=== PATIENT | male | born 1970 | race American Indian/Alaskan Native ===

== ENCOUNTER 2017-01-20 10:25 | Emergency (ER) | payer OTHER ==
--- NOTE | 2017-01-20 11:56 | Emergency Department Report ---
Earache (Pediatric) - HPI Chief Complaint: Earache Stated Complaint: RT EAR PAIN Duration: 2 weeks Location: Bilateral Severity: Mild Symptoms: No URI, No Sore Throat, No Trauma to EAC, No History of Moisture in Ear, No Fever, No Vomiting, No Cough, No Shortness of Breath Other History: 46 year old male presents to ED with bilateral ear pain x2 weeks. Patient denies trauma, fever, drainage, swelling, redness, sore throat, cough. patient states he has mild loss of hearing. patient is stable, neurologically intact and in no acute distress. ED Review of Systems ROS: Stated complaint: RT EAR PAIN Other details as noted in HPI Constitutional: denies: chills, fever Eyes: denies: eye pain, eye discharge, vision change ENT: ear pain, hearing loss. denies: throat pain, congestion Respiratory: denies: cough, shortness of breath, wheezing Cardiovascular: denies: chest pain, palpitations Endocrine: no symptoms reported Gastrointestinal: denies: abdominal pain, nausea, diarrhea Genitourinary: denies: urgency, dysuria Musculoskeletal: denies: back pain, joint swelling, arthralgia Skin: denies: rash, lesions Neurological: denies: headache, weakness, paresthesias Psychiatric: denies: anxiety, depression Hematological/Lymphatic: denies: easy bleeding, easy bruising Peds Earache exam - Exam General: Vital signs noted. No distress. Alert and acting appropriately. HEENT: Yes Moist Mucous Membranes, No Pharyngeal Erythema, No Pharyngeal Exudates, No Rhinorrhea, No Conjuctival Injection, No Frontal Tenderness, No Maxillary Tenderness Ear: Both Cerumen Impaction (patient has severe impaction of bilateral ears with cerumen), Neither TM Bulge, Neither TM Erythema, Neither EAC Pain, Neither EAC Discharge Peds Neck exam: Adenopathy: No, Supple: Yes Peds Lung exam: Good Air Exchange: Yes, Wheezes: No, Stridor: No, Cough: No, Nasal Flaring: No, Retractions: No, Use of Accessory Muscles: No Heart: Yes Regular, No Murmur Peds abdomen: Abdominal Tenderness: No, Peritoneal Signs: No, Normal Bowel Sounds: Yes, Distention: No Peds Skin Exam: Rash: No, Eczema: No Neurologic: Alert and oriented, no deficits. Musculoskeletal: Unremarkable. ED Course Vital Signs 01/20/17 10:51 Temperature 98.5 F Pulse Rate 86 Respiratory 18 Rate Blood Pressure 128/87 O2 Sat by Pulse 98 Oximetry ED Medical Decision Making - Medical Decision Making 46 year old male presents to ED with bilateral ear pain x2 weeks. I have performed irrigation on both ears with normal saline and 10cc syringe with moderate amount of cerumen irrigated from both ears. patient will be given RX for Auralgan otic drops and referral to ENT if pain persists. patient was notified to use Debrox OTC for wax removal at home. patient is stable, neurologically intact and in no acute distress. Critical care attestation.: If time is entered above; I have spent that time in minutes in the direct care of this critically ill patient, excluding procedure time. ED Disposition Clinical Impression: Excessive cerumen in both ear canals Disposition: DISCHARGED TO HOME OR SELFCARE Is pt being admited?: No Does the pt Need Aspirin: No Condition: Stable Additional Instructions: Please use DEBROX for earwax removal at home. Prescriptions: Antipyrine/Benzocaine/Glycerin [Auralgan Otic] 2 drops AU Q8HR #1 bottle Referrals: [facility] [Provider Group] - 2-3 Days [facility] [Provider Group] - 2-3 Days [facility] [Primary Care Provider] - 2-3 Days Forms: Work/School Release Form(ED)
[2017-01-20] MEDS ORDERED: TORADOL IM ONE (13:09)
[2017-01-20 13:24] VITALS: BP 124/84
== END 2017-01-20 13:23 | disposition home or self-care (01) ==
LOC: ED 10:25
DX: H61.23 Impacted cerumen, bilateral (principal)
CPT/HCPCS: 69209; 96372; 99283; J1885